=== PATIENT | female | born 1995 | race African-American/Black ===

== ENCOUNTER 2016-10-22 11:23 | Emergency (ER) | payer OTHER, BC ==
[~2016-10-22] VITALS: Ht 162.6 cm; Wt 50.0 kg
[2016-10-22] MEDS ORDERED: SODIUM CHLORIDE 0.9% 1,000 ML IV ONE (11:36)
[2016-10-22] MEDS ORDERED: MORPHINE SULFATE 4 MG/ML CPJ (NOT FOR IM USE) IV STA (11:36)
[2016-10-22] MEDS ORDERED: ONDANSETRON HCL 4MG/2ML VIAL IV STA (11:36)
[2016-10-22] MEDS ORDERED: IOHEXOL-300 100 ML BOTTLE ONE (12:04)
[2016-10-22] MEDS ORDERED: SODIUM CHLORIDE 0.9% 10ML VIAL ONE (12:04)
[2016-10-22 12:23] LABS: CHLORIDE 106 mEq/L (98-107)
[2016-10-22 12:24] LABS: HCG SCREEN NEGATIVE
[2016-10-22 12:26] LABS: INR 1.1; PARTIAL THROMBOPLASTIN TIME 23.6 sec (23.4-31.0); PROTHROMBIN TIME 11.3 sec (9.4-11.6)
[2016-10-22 12:27] LABS: BASOPHILS % 0.4 % (0.0-2.0); EOSINOPHILS % 0.5 % (0.0-5.0); HEMATOCRIT. 42.8 % (36.0-48.0); HEMOGLOBIN. 14.4 g/dL (12.0-16.0); LYMPHOCYTES % 12.4 % (20.0-50.0); MEAN CORPUSCULAR HEMOGLOBIN 28.9 pg (28.0-32.0); MEAN CORPUSCULAR VOLUME 85.6 fL (81.0-99.0); MONOCYTES % 5.8 % (2.0-8.0); NEUTROPHILS % 80.9 % (40.0-76.0); RED BLOOD CELL COUNT 4.99 mill/uL (4.2-5.4); RED CELL DISTRIBUTION WIDTH 13.4 % (11.6-14.6)
[2016-10-22 12:31] LABS: CARBON DIOXIDE 20 mEq/L (21-32)
[2016-10-22 13:46] LABS: GLUCOSE URINE NEGATIVE (NEGATIVE); KETONES URINE 4+ (NEGATIVE); LEUKOCYTE ESTERASE URINE 2+ (NEGATIVE); NITRITE URINE NEGATIVE (NEGATIVE); OCCULT BLOOD URINE 1+ (NEGATIVE); PROTEIN URINE 1+ (NEGATIVE); SPECIFIC GRAVITY URINE 1.026 (1.005-1.030); UROBILINOGEN URINE 0.2 E.U./dL (0.2-1.0)
[2016-10-22 13:53] LABS: CLARITY URINE TURBID (CLEAR); COLOR URINE PALE YELLOW (YELLOW)
[2016-10-22] MEDS ORDERED: MORPHINE SULFATE 4 MG/ML CPJ (NOT FOR IM USE) IV ONE (14:00)
[2016-10-22] MEDS ORDERED: PIPERACILLIN/TAZ 3.375G PREMIX 50 ML IV ONE (14:00)
[2016-10-22] MEDS ORDERED: FLUCONAZOLE 100MG TABLET PO ONE (19:15)
[2016-10-22 19:45] VITALS: BP 125/72
== END 2016-10-22 20:05 | disposition home or self-care (01) ==
LOC: ER 11:37
DX: N83.202 Unspecified ovarian cyst, left side (principal); N39.0 Urinary tract infection, site not specified
CPT/HCPCS: 36415; 74177; 76705; 76830; 76856; 80053; 81001; 83690; 84703; 85025; 85610; 85730; 86850; 86900; 86901; 87210; 87491; 87591; 93005; 96361; 96365; 96375; 96376; 99285; A4216; J2270; J2405; J2543; J7030; Q9967; Z7610